=== PATIENT | male | born 1980 | race Caucasian/White ===

== ENCOUNTER 2023-07-10 12:40 | Emergency (ER) | payer OTHER ==
[~2023-07-10] VITALS: Ht 185.4 cm; Wt 80.3 kg
[2023-07-10] MEDS ORDERED: ONDANSETRON 4 MG/2 ML VIAL IV ONE (13:30)
[2023-07-10] MEDS ORDERED: HYDROMORPHONE 1 MG/1 ML DISP.SYRIN IV ONE (13:30)
[2023-07-10] MEDS ORDERED: ONDANSETRON 4 MG/2 ML VIAL ONE (13:33)
[2023-07-10] MEDS ORDERED: HYDROMORPHONE 1 MG/1 ML DISP.SYRIN ONE (13:34)
[2023-07-10] MEDS: PROPOFOL 200 MG/20 ML BOTTLE IV ONE ×2 (13:35→13:55)
[2023-07-10] MEDS ORDERED: PROPOFOL 100 ML ONE (13:45)
[2023-07-10] MEDS ORDERED: IBUP-1955 PO (14:45)
[2023-07-10 15:13] VITALS: BP 115/68; TEMP 97.6; O2SAT 100
[2023-07-10] MEDS ORDERED: PROPOFOL 200 MG/20 ML BOTTLE IV ONE (15:15)
== END 2023-07-10 15:00 | disposition home or self-care (01) ==
LOC: ER 12:43
DX: S43.005A Unspecified dislocation of left shoulder joint, initial encounter (principal); X50.1XXA Overexertion from prolonged static or awkward postures, initial encounter; Y93.89 Activity, other specified; Y92.89 Other specified places as the place of occurrence of the external cause; Y99.8 Other external cause status
CPT/HCPCS: 99285; 23650; 96374; 96375; 73030; 73020; J2405; J1170; A4663; J3490